=== PATIENT | male | born 1985 | race Caucasian/White ===

== ENCOUNTER 2022-01-08 09:23 | Emergency (ER) | payer SELFPAY ==
[2022-01-08 10:30] LABS: Hemoglobin 15.5 g/dL (13.5-17.5); Mean Corpuscular HGB CONC 37.3 g/dL (32.0-36.0); Mean Corpuscular Hemoglobin 32.4 pg (27.0-33.0); Mean Corpuscular Volume 86.6 fl (81.2-95.1); Mean Platelet Volume 9.5 fl (7.4-10.4); Platelet Count 247 10x3/uL (150-450); RBC Distribution Width 11.6 % (11.5-14.5); Red Blood Cell (RBC) Count 4.79 10x6/uL (4.32-5.72); White Blood Cell (WBC) Count 6.5 10x3/uL (3.5-10.5)
[2022-01-08 10:33] LABS: MDiff Complete? YES
[2022-01-08 10:37] LABS: INR-International Normal Ratio 1.1; PTT 28.6 sec (22.0-33.0); Prothrombin Time 11.9 sec (9.5-12.1)
[2022-01-08 10:44] LABS: ALT (SGPT) 44 U/L (8-55); AST (SGOT) 21 U/L (5-34); Albumin 4.5 g/dL (3.5-5.0); Alkaline Phosphatase 59 U/L (40-110); Anion Gap 14 mmol/L (10-20); BUN (Urea Nitrogen) 17 mg/dL (8.9-20.6); Bilirubin, Total 0.6 mg/dL (0.2-1.2); Calc. Creatinine Clearance 0 mL/min (70-130); Calcium 9.5 mg/dL (7.8-10.44); Carbon Dioxide 26 mmol/L (22-29); Chloride 104 mmol/L (98-107); Estimated GFR 98; Globulin 2.6 g/dL (2.4-3.5); Glucose 95 mg/dL (70-105); Iron 82 ug/dL (65-175); Iron Binding Capacity, Total 328 mcg/dL (261-462); Potassium 3.8 mmol/L (3.5-5.1); Protein, Total 7.1 g/dL (6.0-8.3); Sodium 140 mmol/L (136-145)
[2022-01-08 10:53] LABS: Band 2 % (5-11); Eosinophils 5 % (0-10); Lymphocytes 38 % (21-51); Monocytes 4 % (0-10); Neutrophil 49 % (42-75); Reactive Lymphocytes 1 % (0-10)
[2022-01-08 10:55] LABS: Large Platelets SLIGHT; Platelet Morphology Comment Appears Adequate
[2022-01-08 10:56] LABS: RBC Morphology Normal
[2022-01-08] MEDS ORDERED: Iopamidol 300 61% 100 ML VIAL FS ONE (15:12)
== END 2022-01-08 13:10 | disposition home or self-care (01) ==
LOC: CSHERS 09:23
DX: K92.1 Melena (principal); R10.9 Unspecified abdominal pain; R10.813 Right lower quadrant abdominal tenderness; R10.814 Left lower quadrant abdominal tenderness; F17.290 Nicotine dependence, other tobacco product, uncomplicated
CPT/HCPCS: 74177; 80053; 82274; 82728; 83540; 83550; 85025; 85610; 85730; 86850; 86900; 86901; 96360; Q9967